=== PATIENT | male | born 1950 | race Caucasian/White ===

== ENCOUNTER → 2016-07-13 | Outpatient (CLI) | payer OTHER, MEDICARE ==
[~2016-07-13] MED LIST: ANTIBIOTIC O500 U/GM TP; HYDROCODONE BIT1 T11 PO; KEFLEX500 MG PO; LISINOPRIL2.5 MG PO; PRINIVIL40 MG PO
== END | disposition home or self-care (01) ==
LOC: US 09:51
DX: Z13.6 Encounter for screening for cardiovascular disorders (principal); I10 Essential (primary) hypertension; Z72.0 Tobacco use

== ENCOUNTER → 2016-12-01 | Day surgery (SDC) | payer OTHER ==
[~2016-12-01] VITALS: Ht 172.7 cm; Wt 81.6 kg
--- NOTE | ~2016-12-01 | O ---
[place], [place] OPERATIVE NOTE NAME: JUDE GONZALES UNIT #: [id number] ROOM: DOCTOR: LAZARO GOMEZ MD BIRTHDATE: [birth year] DOS: GASTROENDOSCOPIC REPORT INDICATIONS: The patient is a 66-year-old who has presented with chief complaint of history of colonic polyp 10 years ago. ALLERGIES: No known medication. FAMILY HISTORY: Noncontributory. PAST SURGICAL HISTORY: Unremarkable. PAST MEDICAL HISTORY: Hypertension. SOCIAL HISTORY: Nonsmoker, nonalcohol consumer. PROCEDURE: Today's procedure part of investigation is colonoscopy plus polypectomy. PREMEDICATION: Versed and Diprivan. SCOPE: Olympus forward-viewing colonoscope 10L video. REPORT: After putting the patient in the left lateral position and after application of lubricant to the scope, the scope was introduced. Thereafter, under direct visualization, I advanced through the length of colon without difficulty. Diverticulosis of colon moderate to severe, particularly in sigmoid colon appreciated. Base of the cecum explored, appendiceal orifice identified, photographed, ileocecal valve was defined. Scope was gradually withdrawn from ascending, transverse, descending colon. Back to sigmoid colon, sessile polypoid lesion at this area with piecemeal polypectomy removed. The patient extubated, tolerated procedure well. IMPRESSION: Severe sigmoid diverticulosis, sessile colon polyp at sigmoid colon, status post piecemeal polypectomy, status post photographic series. PLAN AND DISCUSSION: High fiber diet. ACTIVITY: Ad rula. FOLLOWUP: Routinely with you in office, p.r.n. visit with us in [facility]. This patient does not require a colonoscopy for 5-10 years. Thank you very much indeed for your kind referral. [place], [place] OPERATIVE NOTE NAME: JUDE GONZALES UNIT #: [id number] ROOM: DOCTOR: LAZARO GOMEZ MD BIRTHDATE: [birth year] LAZARO GOMEZ MD CM:OPRECORD:OPERATIVE NOTE [id number] LAZARO GOMEZ MD 12/01/165 interface
[2016-12-01 07:21] VITALS: BP 157/110
[2016-12-01 09:20] VITALS: BP 79/45
[2016-12-01 09:35] VITALS: BP 99/66
[2016-12-01 09:50] VITALS: BP 118/76
== END | disposition home or self-care (01) ==
LOC: SDC 11-26 11:00
DX: Z09 Encounter for follow-up examination after completed treatment for conditions other than malignant neoplasm (principal); K57.30 Diverticulosis of large intestine without perforation or abscess without bleeding; D12.5 Benign neoplasm of sigmoid colon; I10 Essential (primary) hypertension; Z87.891 Personal history of nicotine dependence

== ENCOUNTER 2023-04-09 06:52 | Emergency (ER) | payer OTHER ==
[~2023-04-09] VITALS: Ht 177.8 cm; Wt 90.7 kg
[2023-04-09] MEDS ORDERED: TRANEXAMIC ACID 1,000 MG/10 ML VIAL NAS ONE (09:10)
[2023-04-09] MEDS ORDERED: SODIUM CHLORIDE 0.9% 1,000 ML IV ONE ×2 (09:50→11:45)
[2023-04-09] MEDS ORDERED: METOPROLOL25 MG PO (10:12)
[2023-04-09 12:05] LABS: BASO # 0.1 10*3/uL (0.0-0.1); BASO % 0.4 % (0.0-1.0); EOS % 0.2 % (1.0-4.0); HEMATOCRIT 44.4 % (42.0-52.0); LYMPH % 6.4 % (27.0-41.0); MEAN CELL VOLUME 88.8 fl (80.0-94.0); MEAN CORPUSCULAR HGB 28.2 pg (27.0-31.0); MEAN CORPUSCULAR HGB CONC 31.8 g/dl (33.0-37.0); MEAN PLATELET VOLUME 11.1 fl (9.6-12.3); MONO # 1.2 10*3/uL (0.1-1.0); MONO % 7.2 % (3.0-9.0); NEUT # 13.8 10*3/uL (2.3-7.9); NEUT % 84.8 % (47.0-73.0); PLATELET COUNT AUTOMATED 386 10*3/uL (130-400); RED CELL DISTRI WIDTH 13.4 % (0-14.5); WHITE BLOOD COUNT 16.3 10*3/uL (4.8-10.8)
[2023-04-09 12:27] LABS: BUN 21 mg/dl (9-23); CHLORIDE 109 mmol/L (98-107); POTASSIUM 4.7 mmol/L (3.4-5.1)
== END 2023-04-09 14:04 | disposition home or self-care (01) ==
LOC: ED 06:52
PROVIDERS: Internal Medicine
DX: R04.0 Epistaxis (principal); I10 Essential (primary) hypertension; Z98.890 Other specified postprocedural states